=== PATIENT | female | born 1935 | race Caucasian/White ===

== ENCOUNTER 2017-02-21 03:28 | Emergency (ER) | payer MEDICARE, BC ==
[2017-02-21] MEDS ORDERED: HYDROcodone/ACETAMINOPHEN 1 EACH TABLET PO ONE (05:00)
[2017-02-21] MEDS ORDERED: HYDROcodone/ACETAMINOPHEN 1 EACH TABLET ONE (05:02)
--- NOTE | 2017-02-21 05:09 | ERNOTE ---
Lower Extremity HPI - Narrative Date of Service: 02/21/17 - General Lower Extremities Pain: leg: left, knee: left, ankle: left Time Seen by Provider: 02/21/17 04:00 Source: patient, EMS, EMS notes reviewed Exam Limitations: no limitations - Immun/Allergies/Home Medications Immunizations: IMMUNIZATION HX Immunizations Up to Date Yes History of Influenza Vaccine No Hx Pneumococcal Vaccination Yes Allergies/Adverse Reactions: Allergies Allergy/AdvReac Type Severity Reaction Status Date / Time Penicillins Allergy Unknown Verified 02/21/17 03:41 sulfamethoxazole Allergy Unknown Verified 02/21/17 03:41 [From Bactrim] trimethoprim [From Bactrim] Allergy Unknown Verified 02/21/17 03:41 Home Medications: HOME MEDICATIONS Alendronate Sodium [Fosamax] 70 mg PO Q7D 08/04/12 [Last Taken 08/03/12] Aspirin [Aspirin Enteric Coated] 81 mg PO DAILY 08/04/12 [Last Taken 08/03/12] Calcium Carbonate/Vitamin D3 [Calcium 500 + Vit D Caplet] 1 each PO BID [Last Taken 08/03/12] Cyclobenzaprine HCl [Flexeril] 10 mg PO TID PRN 08/04/12 [Last Taken 08/03/12] Duloxetine HCl [Cymbalta] 60 mg PO DAILY 08/04/12 [Last Taken 08/03/12] Gabapentin [Neurontin] 600 mg PO TID 08/04/12 [Last Taken 08/03/12] Hydrocodone Bit/Acetaminophen [Vicodin 5-500 Tablet] 1 each PO Q4H PRN 08/04/12 [Last Taken 08/03/12] Potassium Chloride [Klor-Con 10] 20 meq PO DAILY 08/04/12 [Last Taken 08/03/12] Zolpidem Tartrate [Ambien] 5 mg PO HS PRN 08/04/12 [Last Taken 08/03/12] Acetaminophen [Tylenol] 325 mg PO Q4H PRN 08/13/12 [Last Taken Unknown] Metoprolol Succinate [Toprol Xl] 12.5 mg PO DAILY 04/13/13 [Last Taken Unknown] Torsemide [Demadex] 10 mg PO DAILY 04/13/13 [Last Taken Unknown] Ferrous Sulfate 325 mg PO DAILY 04/04/14 [Last Taken Unknown] Multivitamin [Poly-Vitamin] 1 each PO DAILY 11/07/14 [Last Taken Unknown] Apixaban [Eliquis] 5 mg PO 02/21/17 [Last Taken Unknown] Bifidobacterium Infantis [Align] 4 mg PO DAILY 02/21/17 [Last Taken Unknown] Bumetanide 1 mg PO DAILY 02/21/17 [Last Taken Unknown] Diclofenac Sodium [Diclofenac 1% Topical Gel] 1 appl TP PRN PRN 02/21/17 [Last Taken Unknown] HYDROcodone/ACETAMINOPHEN [Polo 5-325] 1 tab PO Q4H PRN #40 tab 02/21/17 [Last Taken Unknown] Methylcellulose [Citrucel] 500 mg PO DAILY 02/21/17 [Last Taken Unknown] Metolazone [Zaroxolyn] 2.5 mg PO DAILY 02/21/17 [Last Taken Unknown] Pantoprazole Sodium [Protonix] 40 mg PO DAILY 02/21/17 [Last Taken Unknown] Sertraline HCl 25 mg PO DAILY 02/21/17 [Last Taken Unknown] - History of Present Illness Narrative: patient slipped and fell beside wheel chair, emsbrings patient to hospital Occurred: just prior to arrival Location of Incident: home Method of Injury: Reports: fell Reason for Fall: Reports: lost balance, slipped Loss of Consciousness: Reports: no loss of consciousness Modifying Factors - (Improves): Reports: rest Modifying Factors - (Worsens): Reports: movement Other Injuries: Reports: none Review of Systems - Review of Systems Constitutional: Present: See HPI EYE: Present: no symptoms reported ENT: Present: no symptoms reported Respiratory: Present: no symptoms reported Cardiology: Present: no symptoms reported Gastrointestinal/Abdominal: Present: no symptoms reported Genitourinary: Present: no symptoms reported Musculoskeletal: Present: joint pain, joint swelling Skin: Present: no symptoms reported Neurological: Present: no symptoms reported Endocrine: Present: no symptoms reported Hematologic/Lymphatic: Present: no symptoms reported Psych: Present: no symptoms reported All Other Systems: All systems neg except as marked - Patient's Past Medical History Patient History - Medical: Osteoarthritis, Osteoporosis Patient History - Cardiac/Respiratory: Atrial Fibrillation, Hypertension, Hyperlipidemia, Pneumonia Patient History - Cancer: No Hx of Cancer Patient History - Surgical Procedures: Cataracts, Colonoscopy, Total Knee Replacement Patient History - Other: None LMP (females 10-50): Menopausal - Family History Family History:: no untoward family reactions to anesthesia, no family history of clotting disorders - Family History Mother Family History - Medical: History Unknown Family History - Cardiac/Respiratory: No pertinent hx Family History - Cancer: No pertinent family hx - Social History Living Situations: home Abuse History: No History of abuse Psych History: Hx of Anxiety Smoking Status: Never smoker Have you smoked in the past 12 months: No Do you dip or chew tobacco: No Patient requests Smoking Cessation Consult: No Initiate information on Smoking Cessation: No Alcohol Use: none Drug Use: none - Immunizations Immunizations Up to Date: Yes Hx Pneumococcal Vaccination: Yes History of Influenza Vaccine: No Physical Exam - Physical Exam General Appearance: Present: mild distress, anxious Head Exam: Present: normal inspection, no evidence of injury Eye Exam: Normal inspection: bilateral, PERRL: bilateral, EOMI: bilateral Ears, Nose, Throat: Present: normal ENT inspection Neck: Present: normal inspection, nontender Respiratory: Present: no respiratory distress, normal breath sounds, no accessory muscle use, chest nontender, lungs clear Cardiovascular/Chest: Present: regular rate, rhythm, no murmur, normal peripheral pulses Peripheral Pulses: N=norm/S=strong/W=weak/B=bound/A=absent: Carotid (R): Normal , Carotid (L): Normal, Radial (R): Normal, Radial (L): Normal, Femoral (R): Normal, Femoral (L): Normal, Dorsalis-pedis (R): Normal, Dorsalis-pedis (L): Normal Gastrointestinal/Abdominal: Present: normal bowel sounds, nontender, nondistended, soft, no organomegaly Extremity Exam: Present: joint swelling, other - pain over left anterior knee DTR: N=norm/NB=norm/brisk/A=abs/DD=dull/dimin/HC=hyperactive: Bicep (R): Normal , Bicep (L): Normal, Tricep (R): Normal, Tricep (L): Normal, Knee (R): Normal, Knee (L): Normal, Ankle (R): Normal, Ankle (L): Normal Skin Exam: Present: normal color, warm/dry Lymphatic Exam: Present: no adenopathy ED Progress - Vital Signs Patient's Vital Signs:: I have reviewed the patient's vital signs. Vital Signs: Vital Signs 02/21/17 03:30 Temperature 36.7 C Pulse Rate 102 H Respiratory 16 Rate Blood Pressure 112/61 O2 Sat by Pulse 93 Oximetry - X-Ray X-Ray #1 X-Ray: foot - review of x-rays reveal no fractures - Progress/Reassessment Chief Complaint: Lower Extremity Pain/ Injury - Transfer of Care Expected Disposition: Discharge Departure Clinical Impression: Knee LCL sprain - Departure Disposition: Home self-care Condition: Fair Instructions: Knee Pain, Knee Pain, [id number] Prescriptions: HYDROcodone/ACETAMINOPHEN [Polo 5-325] 1 tab PO Q4H PRN #40 tab PRN Reason: Pain
[2017-02-21 05:31] VITALS: BP 111/60
== END 2017-02-21 05:25 | disposition home or self-care (01) ==
LOC: ER 03:28
DX: S83.422A Sprain of lateral collateral ligament of left knee, initial encounter (principal); W01.0XXA Fall on same level from slipping, tripping and stumbling without subsequent striking against object, initial encounter; Z91.81 History of falling; Y93.9 Activity, unspecified; Y92.009 Unspecified place in unspecified non-institutional (private) residence as the place of occurrence of the external cause; M19.90 Unspecified osteoarthritis, unspecified site; I48.91 Unspecified atrial fibrillation; Z79.01 Long term (current) use of anticoagulants; I10 Essential (primary) hypertension; E78.5 Hyperlipidemia, unspecified